=== PATIENT | male | born 1995 | race Caucasian/White ===

== ENCOUNTER 2016-11-25 22:06 | Emergency (ER) | payer MEDICAID ==
[~2016-11-25] VITALS: Ht 182.9 cm; Wt 117.3 kg
[2016-11-25] MEDS ORDERED: MECLIZINE CHEWABLE 25 MG TAB PO ONE (23:00)
[2016-11-25 23:20] LABS: HEMATOCRIT 46.5 % (39.2-51.8); HEMOGLOBIN 16.2 g/dL (13.7-18.0); WHITE BLOOD COUNT 5.9 x10^3/uL (3.4-10)
[2016-11-25 23:31] LABS: BLOOD UREA NITROGEN 8 mg/dL (7-18)
[2016-11-25] MEDS ORDERED: MECLIZINE CHEWABLE 25 MG TAB ONE (23:50)
[2016-11-26 00:36] VITALS: BP 128/64
== END 2016-11-26 00:39 | disposition home or self-care (01) ==
LOC: ED 11-26 00:36
DX: R04.0 Epistaxis (principal); I10 Essential (primary) hypertension
CPT/HCPCS: 36415; 80048; 82040; 85025; 93005; 99285

== ENCOUNTER 2019-03-25 20:32 | Emergency (ER) | payer MEDICAID ==
[~2019-03-25] VITALS: Ht 180.3 cm; Wt 130.5 kg
[2019-03-25 20:35] VITALS: BP 162/95
--- NOTE | 2019-03-25 20:46 | NUR ---
23Y M PRESENTS WITH C/O FEELING HOT WHEN HE TRIES TO SLEEP. PT DENIES NEW MEDICATIONS, DIET CHANGE AND RECENT ILLNESS. PA AT BEDSIDE TO ASSESS PT
== END 2019-03-25 21:04 | disposition home or self-care (01) ==
LOC: ED 21:02
DX: Z02.9 Encounter for administrative examinations, unspecified (principal)
CPT/HCPCS: 99281